=== PATIENT | female | born 1980 | race Caucasian/White ===

== ENCOUNTER 2017-09-08 17:29 | Emergency (ER) | payer BC ==
[2017-09-08] MEDS ORDERED: cloNIDine HCl 0.1 MG TAB ONE (18:16)
[2017-09-08 19:44] LABS: Potassium 3.9 mEq/L (3.6-5.0)
--- NOTE | 2017-09-08 20:26 | EDPHYS ---
Physician Documentation [facility] Name: Huma Mackey Age: 37 yrs Sex: Female : 1980 Arrival Date: 09/08/2017 Time: 17:33 Bed 6 Private MD: ED Physician Tu Edwards HPI: 09/08 19:26 This 37 yrs old Female presents to ER via Ambulatory with complaints of High rn Blood Pressure. 19:26 The patient has elevated blood pressure and discovered this at home. Onset: The rn symptoms/episode began/occurred this morning. Modifying factors: The symptoms are aggravated by. Severity of symptoms: At its worst the blood pressure was moderate, in the emergency department the blood pressure is unchanged. The patient has experienced similar episodes in the past. Reports high blood pressure, noticed this AM, has hx of high BP, on medication, compliant, reports mild head pressure, nausea, and generalized weakness. No focal neurological complaint. . 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 - Social history:: Smoking status: Patient/guardian denies using tobacco. - Family history:: not pertinent. - Hospitalizations: : No recent hospitalization is reported. ROS: 19:26 Constitutional: Negative for fever, chills, and weight loss, Eyes: Negative for injury, rn pain, redness, and discharge, Neck: Negative for injury, pain, and swelling, Cardiovascular: Negative for chest pain, palpitations, and edema, Respiratory: Negative for shortness of breath, cough, wheezing, and pleuritic chest pain, Abdomen/GI: Negative for abdominal pain, vomiting, diarrhea, and constipation, Back: Negative for injury and pain, MS/Extremity: Negative for injury and deformity, Skin: Negative for injury, rash, and discoloration, Neuro: Negative for weakness, numbness, tingling, and seizure. Exam: 19:26 Constitutional: This is a well developed, well nourished patient who is awake, alert, rn and in no acute distress. Head/Face: Normocephalic, atraumatic. Eyes: Pupils equal round and reactive to light, extra-ocular motions intact. Lids and lashes normal. Conjunctiva and sclera are non-icteric and not injected. Cornea within normal limits. Periorbital areas with no swelling, redness, or edema. Neck: Trachea midline, no thyromegaly or masses palpated, and no cervical lymphadenopathy. Supple, full range of motion without nuchal rigidity, or vertebral point tenderness. No Meningismus. Cardiovascular: Regular rate and rhythm with a normal S1 and S2. No gallops, murmurs, or rubs. Normal PMI, no JVD. No pulse deficits. Respiratory: Lungs have equal breath sounds bilaterally, clear to auscultation and percussion. No rales, rhonchi or wheezes noted. No increased work of breathing, no retractions or nasal flaring. Abdomen/GI: Soft, non-tender, with normal bowel sounds. No distension or tympany. No guarding or rebound. No evidence of tenderness throughout. MS/ Extremity: Pulses equal, no cyanosis. Neurovascular intact. Full, normal range of motion. Equal circumference. Neuro: Awake and alert, GCS 15, oriented to person, place, time, and situation. Cranial nerves II-XII grossly intact. Motor strength 5/5 in all extremities. Sensory grossly intact. Vital Signs: 17:52 BP 161 / 101; Pulse 85; Resp 18; Temp 97.8; Pulse Ox 100% on R/A; Pain 6/10; ph 19:17 BP 123 / 70; Pulse 76; Resp 16; Pulse Ox 98% ; ao 19:28 BP 123 / 70; Pulse 88; sg 19:52 BP 109 / 73; Pulse 78; Resp 16; Pulse Ox 97% on R/A; ao 20:16 BP 126 / 72; Pulse 78; Resp 18; Pulse Ox 99% on R/A; mt MDM: 17:56 Patient medically screened. rn 19:28 Differential diagnosis: hypertensive crisis, Malignant HTN. Data reviewed: vital signs, rn nurses notes. 20:24 Counseling: I had a detailed discussion with the patient and/or guardian regarding: the rn historical points, exam findings, and any diagnostic results supporting the discharge/admit diagnosis, lab results, radiology results, the need for outpatient follow up, to return to the emergency department if symptoms worsen or persist or if there are any questions or concerns that arise at home. Special discussion: I discussed with the patient/guardian in detail that at this point there is no indication for admission to the hospital. It is understood, however, that if the symptoms persist or worsen the patient needs to return immediately for re-evaluation. Based on the history and exam findings, there is no indication for further emergent testing or inpatient evaluation. I discussed with the patient/guardian the need to see the collections assistant for further evaluation of the symptoms. I discussed with the patient/guardian the need to see the primary care provider for further evaluation of the symptoms. 20:25 ED course: Recommended pcp f/u, with BP diary, and return precautions. . rn 09/08 18:09 Order name: BMP; Complete Time: 19:56 rn 09/08 18:09 Order name: Troponin (emerg Dept Use Only); Complete Time: 19:56 rn 09/08 18:09 Order name: IV Start; Complete Time: 19:29 rn 09/08 18:09 Order name: Urine Dipstick-Ancillary (obtain specimen); Complete Time: 19:28 rn 09/08 18:09 Order name: EKG; Complete Time: 19:10 rn 09/08 18:09 Order name: Urine Test (obtain specimen); Complete Time: 19:28 rn 09/08 18:09 Order name: EKG - Nurse/Tech; Complete Time: 19:32 rn Administered Medications: 18:20 Drug: cloNIDine 0.1 mg Route: PO; sg 19:28 Follow up: BP 123 / 70; Pulse 88 bpm; Response: No adverse reaction; Blood pressure is sg lowered Disposition: 09/08/17 20:25 Discharged to Home. Impression: Hypertension. - Condition is Stable. - Discharge Instructions: Hypertension. - Medication Reconciliation Form, Thank You Letter, Antibiotic Education, Prescription Opioid Use form. - Follow up: Private Physician; When: As needed; Reason: Recheck today's complaints, Re-evaluation by your physician. - Problem is new. - Symptoms have improved. Signatures: Dispatcher [employer] EDMS Juancarlos Moffett RN RN sg Tu Edwards MD MD rn Hall, Patricia, RN RN Shai Mueller RN RN ao
--- NOTE | 2017-09-08 20:26 | ER ---
Nurse's Notes [facility] Name: Huma Mackey Age: 37 yrs Sex: Female : 1980 Arrival Date: 09/08/2017 Time: 17:33 Bed 6 Private MD: Diagnosis: Hypertension Presentation: 09/08 17:48 Presenting complaint: Patient states: " I was feeling strange this morning so I checked ph my blood pressure and it was high 148/98 and it is usually 130s/80s, I take BP meds but they haven't helped today." Pt reports headache, dizziness, and blurred vision, also reports discomfort in center of chest. Transition of care: patient was not received from another setting of care. Onset of symptoms was September 08, 2017. Initial Sepsis Screen: Does the patient meet any 2 criteria? No. Patient's initial sepsis screen is negative. Does the patient have a suspected source of infection? No. Patient's initial sepsis screen is negative. Care prior to arrival: None. 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 - Social history:: Smoking status: Patient/guardian denies using tobacco. - Family history:: not pertinent. - Hospitalizations: : No recent hospitalization is reported. Screenin:20 Abuse screen: Denies threats or abuse. Denies injuries from another. Nutritional sg screening: No deficits noted. Tuberculosis screening: No symptoms or risk factors identified. Never had TB. Fall Risk None identified. Assessment: 18:20 General: Appears in no apparent distress. comfortable, well groomed, well developed, sg well nourished, Behavior is calm, cooperative, appropriate for age. Pain: Complains of pain in head Pain does not radiate. Quality of pain is described as pulsating. Neuro: Level of Consciousness is awake, alert, obeys commands, Oriented to person, place, time, Psychiatric Lpn are equal bilaterally Moves all extremities. Full function Speech is normal, Facial symmetry appears normal. Cardiovascular: Heart tones S1 S2 present Capillary refill is brisk in bilateral fingers Patient's skin is warm and dry. Chest pain is denied. Respiratory: Airway is patent Respiratory effort is even, unlabored, Respiratory pattern is regular, symmetrical, Breath sounds are clear. GI: No signs and/or symptoms were reported involving the gastrointestinal system. : No signs and/or symptoms were reported regarding the genitourinary system. EENT: No deficits noted. Derm: Skin is pink, warm \\T\\ dry. Musculoskeletal: No signs and/or symptoms reported regarding the musculoskeletal system. 19:17 Reassessment:. General: Appears in no apparent distress. comfortable, well groomed, ao well developed, well nourished, Behavior is calm, cooperative, appropriate for age. Pain: Complains of pain in head Pain does not radiate. Quality of pain is described as pulsating. Neuro: Level of Consciousness is awake, alert, obeys commands, Oriented to person, place, time, Appropriate for age Psychiatric Lpn are equal bilaterally Moves all extremities. Full function Speech is normal, 19:17 Cardiovascular: Patient's skin is warm and dry. Respiratory: Airway is patent ao Respiratory effort is even, unlabored, Respiratory pattern is regular, symmetrical. GI: No signs and/or symptoms were reported involving the gastrointestinal system. : No signs and/or symptoms were reported regarding the genitourinary system. EENT: No signs and/or symptoms were reported regarding the EENT system. Derm: Skin is pink, warm \\T\\ dry. Musculoskeletal: No signs and/or symptoms reported regarding the musculoskeletal system. Vital Signs: 17:52 BP 161 / 101; Pulse 85; Resp 18; Temp 97.8; Pulse Ox 100% on R/A; Pain 6/10; ph 19:17 BP 123 / 70; Pulse 76; Resp 16; Pulse Ox 98% ; ao 19:28 BP 123 / 70; Pulse 88; sg 19:52 BP 109 / 73; Pulse 78; Resp 16; Pulse Ox 97% on R/A; ao 20:16 BP 126 / 72; Pulse 78; Resp 18; Pulse Ox 99% on R/A; mt ED Course: 17:33 Patient arrived in ED. mr 17:50 Triage completed. ph 17:53 Arm band placed on. ph 17:56 Tu Edwards MD is Attending Physician. rn 18:05 Juancarlos Moffett, JUAN is Primary Nurse. sg 18:30 Patient has correct armband on for positive identification. Bed in low position. Call sg light in reach. Side rails up X2. Pulse ox on. NIBP on. Head of bed. 19:00 Initial lab(s) drawn, by me, sent to lab. Urine collected: clean catch specimen, clear. sg 19:00 Inserted saline lock: 20 gauge in left antecubital area, using aseptic technique. Blood sg collected. Patient maintains SpO2 saturation greater than 95% on room air. 19:20 Report given to Matthew MARTINEZ and Shai RN. sg 19:50 Shai Mueller, RN is Primary Nurse. ao 20:50 No provider procedures requiring assistance completed. IV discontinued, intact, ao bleeding controlled, No redness/swelling at site. Pressure dressing applied. Administered Medications: 18:20 Drug: cloNIDine 0.1 mg Route: PO; sg 19:28 Follow up: BP 123 / 70; Pulse 88 bpm; Response: No adverse reaction; Blood pressure is sg lowered Outcome: 20:25 Discharge ordered by . rn 20:50 Discharged to home ambulatory. ao 20:50 Condition: stable 20:50 Discharge instructions given to patient, Instructed on discharge instructions, follow up and referral plans. Demonstrated understanding of instructions, follow-up care. 20:50 Patient left the ED. ao Signatures: Juancarlos Moffett, RN RN Teodora Chang mr Tu Edwards MD MD rn Hall, Patricia, RN RN Shai Mueller RN RN ao [place], [facility]
--- NOTE | 2017-09-09 07:29 | EKG ---
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
== END 2017-09-08 20:50 | disposition home or self-care (01) ==
LOC: ER 17:29
DX: I10 Essential (primary) hypertension (principal)
CPT/HCPCS: 36415; 80048; 84484; 93005; 99284

== ENCOUNTER 2020-12-04 09:25 | Day surgery (SDC) | payer BC ==
[2020-12-04 10:03] LABS: Absolute Lymphocytes (CBC) 1.8 K/uL (0.7-4.9); Basophils % 0.5 % (0-1.3); Hematocrit 35.8 % (36.0-45.0); Lymphocytes % 22.5 % (15.3-44.8); MPV 8.8 fL (7.6-11.3); RBC Red Blood Cell Count 3.67 M/uL (3.86-4.86)
[2020-12-04] MEDS ORDERED: Ringers Lactate 1,000 ML IV ONE (10:10)
[2020-12-04] MEDS ORDERED: CEFAZOLIN/SWI 1gm 1 GM/10 ML SYR ONE (10:11)
[2020-12-04 10:12] LABS: BUN Blood Urea Nitrogen 5 mg/dL (7-18); Bicarbonate 24 mmol/L (21-32); Glucose Level 109 mg/dL (74-106); Sodium Level 138 mmol/L (136-145)
[2020-12-04] MEDS ORDERED: propofoL 200 MG/20 ML VIAL IV ONE ×2 (10:14→10:55)
[2020-12-04] MEDS ORDERED: FENTANYL CITR 100 MCG/2 ML ONE (10:14)
[2020-12-04] MEDS ORDERED: MIDAZOLAM HCL 2 MG/2 ML INJ ONE (10:15)
[2020-12-04] MEDS ORDERED: dexAMETHasone 10 MG/ML VIAL ONE (10:15)
[2020-12-04] MEDS ORDERED: KETOROLAC 30 MG/ML INJ ONE (10:15)
[2020-12-04] MEDS ORDERED: BUPIVACAINE 0.5% PF 10 ML VIAL ONE (10:16)
[2020-12-04] MEDS ORDERED: ONDANSETRON 4 MG/2 ML VIAL ONE (10:18)
[2020-12-04] MEDS ORDERED: LIDOCAINE 1% MPF 30 ML VIAL ONE (10:20)
[2020-12-04] MEDS ORDERED: NS 0.9% VIAL 10 ML ONE (11:02)
--- NOTE | 2020-12-04 11:03 | P.BOP ---
Preoperative diagnosis: infected posterior neck subcutaneous mass, cellultis, abscess Postoperative diagnosis: same Primary procedure: Excisional biopsy infected posterior neck subcutaneous mass Secondary procedure: 5x5cm Estimated blood loss: <10cc Specimen: mass, culture Findings: see dicta Anesthesia: General Complications: None Drain(s): Other Transferred to: Recovery Room Condition: Good
[2020-12-04] MEDS ORDERED: CODEINE 30MG/APAP 300MG TAB ONE (12:11)
[2020-12-04 13:01] VITALS: BP 122/48; TEMP 98.5; O2SAT 99
--- NOTE | 2020-12-04 21:13 | OP ---
Date of Procedure: 12/04/2020 Surgeon: Bassam Arevalo MD Preoperative Diagnosis: Infected posterior neck subcutaneous mass, cellulitis, abscess. Postoperative Diagnosis: Infected posterior neck subcutaneous mass, cellulitis, abscess. Procedure: Excisional biopsy of infected posterior neck subcutaneous mass with abscess drainage abou t 5 x 5 cm. Estimated Blood Loss: Less than 10 cc. Specimen: Mass culture. Findings: Patient has a mass with an underlying abscess present, cellulitis present over the area, p urulent discharge coming on exploration. Anesthesia: General plus local. Indications: This is the case of a 40-year-old patient with a posterior neck subcutaneous mass with cellulitis, abscess draining purulent discharge. Benefits, alternatives, and risks of excisional bio psy of the mass with abscess drainage fully explained, which include, but not limited to infection, b leeding, damage to adjacent structures, anesthesia complication, recurrence, AL and even . She also understands this may not relieve any symptoms. She might need more than one surgical interventi on. She will require wound care. She signed a consent. Procedure In Detail: The area of concern was marked by me and the patient in the holding room. The patient was brought to the operating room, placed in supine position. Anesthesia was done without co mplication. The patient was placed in lateral decubitus position with proper protection. The glaze wiper ior neck mass was identified. The area was prepped and draped in a sterile fashion. Incision was ma de in a wedge fashion, and once we got down to the mass, we noted there is a deeper abscess present. Loculations were explored open. Mass was removed. Abscess was drained. Cultures were obtained and the specimen sent for pathology. The patient tolerated the procedure well. Hemostasis was obtained after irrigation. The area was packed with the dry dressing. The patient was sent to Recovery in s table condition. AUGIE/MIKEL Voice ID: [id number] Report ID: [id number]
--- NOTE | 2020-12-04 21:16 | DS ---
Date of Discharge: 12/04/2020 Diagnosis: Infected posterior neck subcutaneous mass with cellulitis and abscess. Procedure: Excisional biopsy of infected posterior neck subcutaneous mass. Disposition: Home. Activity: As tolerated. No heavy lifting. Followup: Follow up in my office in 1 week. Call for appointment at [phone]. Wet-to-dry dressing daily. The patient already had prescribed Bactrim, Tylenol No. #3 and normal saline from my office. AUGIE/MIKEL Voice ID: [id number] Report ID: [id number]
== END 2020-12-04 12:40 | disposition home or self-care (01) ==
LOC: OR 09:25
PROVIDERS: ATTEND Surgery
PROC: 0JB50ZZ Excision of Left Neck Subcutaneous Tissue and Fascia, Open Approach (ICD-10-PCS; principal; 2020-12-04 11:00)
DX: L72.0 Epidermal cyst (principal); L03.221 Cellulitis of neck; L02.11 Cutaneous abscess of neck
CPT/HCPCS: 93005; 87070; 85025; 80048; 36415; 87205 ×2; 84703; 88304; 87075; 11426; J2704 ×2; J2250; J3010; J1100; J0690; J7120; J2405; 88305